=== PATIENT | male | born 1995 | race Caucasian/White ===

== ENCOUNTER 2019-10-23 08:33 | Day surgery (SDC) | payer BC, SELFPAY ==
[2019-10-23 08:41] VITALS: BMI 25.4
[2019-10-23 08:51] VITALS: BP 129/69; PULSE 57; RESP 14; TEMP 36.6; O2SAT 99
[2019-10-23 09:47] LABS: Coronavirus 19 IgG Antibody Negative (Negative); Coronavirus 19 IgM Antibody Negative (Negative)
[2019-10-23 11:20] VITALS: BP 115/71; PULSE 52; RESP 18; TEMP 36.4; O2SAT 99
[2019-10-23 11:40] VITALS: BP 123/77; PULSE 60; RESP 18; TEMP 36.4; O2SAT 99
--- NOTE | 2019-10-23 16:55 | HMH.OPNOTE ---
Date of procedure: 10/23/19 Pre-op Diagnosis:: Sterilization Post-op Diagnosis:: Same Procedure performed:: Vasectomy Surgeon:: David Noriega MD Anesthesia: local Estimated blood loss (mL): 5 Clinical Note:: 24-year-old white male who was seen recently for vasectomy consultation presents for the procedure. Operative findings:: Normal testicular examination. Procedure went well without complication. Operative note:: Patient taken to the operating room after informed consent was obtained. Is placed on the operating table in the supine position. Testicular examination revealed no abnormalities. Is prepped and draped in the standard surgical fashion. The left vas was grasped and brought up to the midline raphae. Local anesthetic was then placed into the skin above, the side and behind the vas. Incision was then made in the midline raphae. The vas was grasped with a tenaculum and brought up through the incision. The basal sheath was then incised and the vas proper was isolated from its surrounding soft tissue. The vas was clipped once distally in 2 clips proximally. A 1 cm segment was excised and the basal lumen was cauterized. Hemostasis was achieved and the vas dropped back in the left hemiscrotum. Identical procedure was performed on the patient's right side. A 3-0 chromic was placed in a horizontal mattress fashion into the skin and the compression dressing applied. Patient tolerated procedure well discharged home with routine instructions and medications. Condition: stable Disposition: same day Specimens:: Vas segments Complications:: None
== END 2019-10-23 11:40 | disposition home or self-care (01) ==
LOC: OR 08:38
PROVIDERS: PCP Family Medicine; Visit Provider Urology
PROC: (CPT 55250; principal; 2019-10-23 10:00)
DX: Z30.2 Encounter for sterilization (principal); Z20.828 Contact with and (suspected) exposure to other viral communicable diseases
CPT/HCPCS: 55250; 86328

== ENCOUNTER → 2021-02-10 15:51 | Outpatient (CLI) | payer BC, SELFPAY ==
[2021-02-10 18:55] LABS: Basophils # 0.1 K/mm3 (0-0.2); Basophils % 0.9 % (0.1-2.0); Eosinophils # 0.3 K/mm3 (0.0-0.4); Eosinophils % 2.7 % (0.1-12.0); Hematocrit 48.8 % (42.0-52.0); Lymphocytes # 2.2 K/mm3 (0.7-4.5); Lymphocytes % 20.4 % (10-50); Mean Corpuscular HGB Conc 34.9 g/dL (31.8-35.4); Mean Corpuscular Hemoglobin 29.8 pg (27.0-31.2); Mean Corpuscular Volume 85.4 fl (80-94); Mean Platelet Volume 8.7 fl (7.4-10.4); Monocytes # 0.7 K/mm3 (0.1-1.0); Monocytes % 6.9 % (1.7-9.3); Neutrophils # 7.5 K/mm3 (1.8-7.8); Neutrophils % 69.2 % (37.0-80.0); Platelet Count 264 K/mm3 (142-424); Red Blood Count 5.72 M/mm3 (4.60-6.20); Red Cell Distribution Width 13.1 % (11.5-17.5); White Blood Count 10.8 K/mm3 (4.8-10.8)
== END ==
PROVIDERS: PCP Family Medicine; Visit Provider Nurse Practitioner
DX: Z20.822 Contact with and (suspected) exposure to COVID-19 (principal)
CPT/HCPCS: 36415; 85025; C9803; U0003; U0005

== ENCOUNTER 2022-05-03 20:58 | Emergency (ER) | payer BC, SELFPAY ==
[2022-05-03 21:00] VITALS: BP 133/84; PULSE 88; RESP 16; TEMP 36.9; O2SAT 100; BMI 25.0
--- NOTE | 2022-05-03 21:31 | CT_ITS ---
PROCEDURE INFORMATION: Exam: CT Abdomen And Pelvis Without Contrast Exam date and time: 05/03/2022 10:25 PM Age: 26 years old Clinical indication: Abdominal pain; Flank; Left; Additional info: Stone protocol TECHNIQUE: Imaging protocol: Computed tomography of the abdomen and pelvis without contrast. Radiation optimization: All CT scans at this facility use at least one of these dose optimization techniques: automated exposure control; mA and/or kV adjustment per patient size (includes targeted exams where dose is matched to clinical indication); or iterative reconstruction. Other protocol: This patient has received 0 known CTs and 0 known cardiac nuclear medicine studies in the 12 months prior to the current study. COMPARISON: No relevant prior studies available. FINDINGS: Liver: Normal. No mass. Gallbladder and bile ducts: Normal. No calcified stones. No ductal dilation. Pancreas: Normal. No ductal dilation. Spleen: Normal. No splenomegaly. Adrenal glands: Normal. No mass. 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 No normal kidney seen in the expected location in the right renal fossa. There is mild hydronephrosis and perinephric edema involving the left renal moiety. No evidence of urolithiasis. Stomach and bowel: Unremarkable. No obstruction. No mucosal thickening. Appendix: No evidence of appendicitis. Intraperitoneal space: Unremarkable. No free air. No significant fluid collection. Vasculature: Unremarkable. No abdominal aortic aneurysm. Lymph nodes: Unremarkable. No enlarged lymph nodes. Urinary bladder: Unremarkable as visualized. Reproductive: Unremarkable as visualized. Bones/joints: Unremarkable. No acute fracture. Soft tissues: Unremarkable. 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 This raises concern for pyelonephritis/urinary tract infection.
--- NOTE | 2022-05-03 21:35 | PC.NURSE ---
FLORA ELIZABETH at
[2022-05-03 21:38] LABS: Microscopic, Urine URINE MICROSCOPIC (MICROSCOPIC)
[2022-05-03 21:41] LABS: Appearance,Urine CLEAR (Clear); Bilirubin,Urine Negative (Negative); Blood, Urine 3+ (Negative); Color,Urine YELLOW (Yellow); Glucose,Urine (UA) Negative (Negative); Ketones,Urine Negative (Negative); Leukocyte Esterase,Urine Negative (Negative); Nitrate,Urine Negative (Negative); Protein,Urine Negative (Negative); Urobilinogen,Urine 0.2 EU/dl (0.2)
[2022-05-03 21:42] LABS: Basophils # 0.1 K/mm3 (0-0.2); Basophils % 0.5 % (0.1-2.0); Eosinophils % 0.2 % (0.1-12.0); Hematocrit 46.8 % (42.0-52.0); Hemoglobin 16.1 g/dL (14.1-18.0); Lymphocytes # 1.1 K/mm3 (0.7-4.5); Lymphocytes % 7.3 % (10-50); Mean Corpuscular HGB Conc 34.5 g/dL (31.8-35.4); Mean Corpuscular Hemoglobin 29.1 pg (27.0-31.2); Mean Corpuscular Volume 84.6 fl (80-94); Mean Platelet Volume 8.8 fl (7.4-10.4); Monocytes # 0.5 K/mm3 (0.1-1.0); Monocytes % 3.2 % (1.7-9.3); Neutrophils # 13.6 K/mm3 (1.8-7.8); Neutrophils % 88.8 % (37.0-80.0); Platelet Count 295 K/mm3 (142-424); Red Blood Count 5.53 M/mm3 (4.60-6.20); Red Cell Distribution Width 13.7 % (11.5-17.5); White Blood Count 15.4 K/mm3 (4.8-10.8)
[2022-05-03 21:44] LABS: MANUAL DIFFERENTIAL MANUAL DIFFERENTIAL (MANUAL DIFF)
--- NOTE | 2022-05-03 21:44 | HMH.EDUROGM ---
Discharge Plan Disposition Patient Disposition: Home, Self-Care Prescriptions Prescriptions: New levofloxacin 500 mg tablet 500 mg PO DAILY Qty: 7 0RF No Action acetazolamide 125 mg tablet 125 mg PO BID Label Comments: TAKE 1 TABLET BY MOUTH TWICE DAILY Referrals Follow up/Referrals: Eagle Donis MD [Primary Care Provider] - See instructions Clinical Impressions Clinical Impression: Acute left flank pain, Hematuria Stand Alone Forms Stand Alone Forms: Work/School Release Instructions Patient Instructions: DI for Hematuria Discharge ED Provider: Natalie (ED)Daniel Male Urogenital HPI General Chief complaint: Urogenital-Male Stated complaint: abd pain Time Seen by Provider: 05/03/22 21:45 Mode of Arrival: Ambulatory Source of Information: Medical Record Limitations: No Limitations Description of Symptoms (Recalled from ER Triage Doc. by RN): pt advises he woke up with lower abd pain that radiates into his flank/back area. Pt advises the pain has gotten progressively worse as the day as progressed and he feels like he neds to urinate constantly. History of Present Illness HPI Narrative: pt with acute lt flank and abd pain with feels need to urinate - no gross hematuria Onset (ago): hour(s) Duration: intermittent Location: left flank Severity: moderate Reports denies other symptoms Related Data Home Medications Medication Instructions Recorded Confirmed acetazolamide 125 mg tablet 125 mg PO BID Headaches 05/03/22 05/03/22 Previous Rx's Medication Instructions Recorded levofloxacin 500 mg tablet 500 mg PO DAILY #7 tabs 05/04/22 Allergies Allergy/AdvReac Type Severity Reaction Status Date / Time No Known Allergies Allergy Verified 10/23/19 08:58 [facility] Disclaimer: The information contained in this section may have been updated after the patient was seen, as this information can be updated by other users. Social History Smoking Status: Never smoker alcohol intake: current substance use type: denies use current occupational status: employed Travel in the last 8 weeks: None household members: spouse and family housing: house current occupation: [employer] current occupational exposures/hazards: No caffeine: Yes ROS Obtained: Yes All systems reviewed & no additional complaints except as documented Physical Exam General General appearance: alert Head Head exam: normocephalic Eye Eye exam: Present PERRL and EOMI ENT ENT exam: Present mucous membranes moist Neck Neck exam: Present trachea midline Respiratory Respiratory exam: Absent respiratory distress Cardiovascular Cardiovascular exam: Present regular rate Abdominal Exam Abdominal exam: Present soft Extremities Exam Extremities exam: Present full ROM Neurological Exam Neurological exam: Present alert, oriented X3 and CN II-XII intact; Absent motor sensory deficit Psychiatric Psychiatric exam: Present normal affect Skin Skin exam: Absent rash Medical Decision Making Medical Records Medical records reviewed: Yes I reviewed the patient's medical records. [facility]vin Inquiry Pt receiving controlled substance: No Vital Signs: 05/03/22 21:00 05/04/22 00:19 05/04/22 00:19 Temperature 98.5 F 97.9 F Temperature Source Oral Oral Pulse Rate 86 Pulse Rate [Right] 88 Respiratory Rate 16 16 Blood Pressure 149/77 H Blood Pressure [Right Arm] 133/84 Blood Pressure Mean [Right Arm] 100 Blood Pressure Source Automatic Cuff Blood Pressure Source [Right Arm] Automatic Cuff Blood Pressure Position Sitting Blood Pressure Position [Right Arm] Sitting 02 Sat by Pulse Oximetry 100 Oxygen Delivery Method Room Air Room Air Room Air Lab Data Lab results reviewed: Yes I reviewed the patient's lab results. Lab Results 05/03/22 21:22: Urine Color Yellow, Urine Appearance Clear, Urine pH 7.0, Ur Specific [place] 1.020, Urine Protein Negative, Urine G
[2022-05-03 21:47] LABS: Alanine Aminotransferase 26 U/L (12-78); Albumin Level 4.9 g/dl (3.5-5.0); Alkaline Phosphatase 101 U/L (38-126); Anion Gap 11.5 mEq/L (5-15); Aspartate Amino Transferase 28 U/L (17-59); Bilirubin,Total 0.6 mg/dl (0.2-1.3); Blood Urea Nitrogen 18 mg/dl (9-20); Calcium 9.1 mg/dl (8.4-10.2); Carbon Dioxide 21 mmol/L (22.0-30.0); Chloride 109 mmol/L (98-107); Creatinine Clearance Estimated 99 mL/min (50-200); Estimated Glomerular Filt Rate 61 ml/min (>60); GFR (African American) 74 ML/MIN (>60); Globulin 2.4 g/dL (1.3-3.2); Glucose 138 mg/dl (74-100); Potassium 3.5 mmoL/L (3.5-5.1); Sodium 138 mmol/L (136-145); Total Protein,Serum 7.3 g/dl (6.3-8.2)
[2022-05-03 21:49] LABS: RBC,Urine 20-50 #/hpf (0-3); WBC,Urine Occasional #/hpf (0-3)
[2022-05-03 21:59] LABS: Lymphocytes % 12 % (10-50); Neutrophils % 88 % (42-76); Platelet Estimate Normal; RBC Morphology Normal; Total Cells Counted 100
--- NOTE | 2022-05-03 22:02 | PC.NURSE ---
rounded on pt, advised he was still having some pain. VO given for additional pain meds. No other needs at this time
--- NOTE | 2022-05-03 22:21 | PC.NURSE ---
Pt going to CT
--- NOTE | 2022-05-03 22:27 | PC.NURSE ---
patient returned from CT
--- NOTE | 2022-05-03 22:38 | PC.NURSE ---
Rounded on patient, no needs at this time.
--- NOTE | 2022-05-03 23:55 | PC.NURSE ---
Zen Donis MD at this time
--- NOTE | 2022-05-03 23:57 | PC.NURSE ---
Natalie speaking with [facility] at this time
--- NOTE | 2022-05-04 00:08 | PC.NURSE ---
Rounded on patient. patient voiced no needs at this time.
[2022-05-04 00:19] VITALS: BP 149/77; PULSE 86; RESP 16; TEMP 36.6; O2SAT 99
== END 2022-05-04 00:43 | disposition home or self-care (01) ==
PROVIDERS: Emergency Provider Emergency Medicine; PCP Family Medicine
DX: R10.30 Lower abdominal pain, unspecified (principal); R31.9 Hematuria, unspecified
CPT/HCPCS: 74176; 80053; 81001; 85007; 85025; 87086; 96361; 96374; 96375; 99285; J2405